=== PATIENT | male | born 1960 | race Caucasian/White ===

== ENCOUNTER 2021-03-14 04:51 | Emergency (ER) | payer BC, MEDICARE ==
[~2021-03-14] VITALS: Ht 185.4 cm; Wt 98.9 kg
[2021-03-14 05:26] LABS: BASOPHILS % (AUTO) 0.3 % (0.0-5.0); EOSINOPHILS % (AUTO) 0.1 % (0.0-8.0); HEMATOCRIT 42.1 % (42-54); LYMPHOCYTES % (AUTO) 8.7 % (21.0-51.0); MEAN CORPUSCULAR HEMOGLOBIN 28.4 pg (27.0-33.0); MEAN CORPUSCULAR HGB CONC 32.8 g/dL (32.0-36.0); MEAN CORPUSCULAR VOLUME 86.6 fL (79-99); MONOCYTES % (AUTO) 3.3 % (3.0-13.0); NEUTROPHILS % (AUTO) 87.1 % (40.0-77.0); PLATELET COUNT (AUTO) 259 K/uL (130-400); RED BLOOD CELL COUNT(AUTO) 4.86 MIL/uL (4.50-6.20); RED CELL DISTRIBUTION WIDTH 14.3 % (11.0-15.5); WHITE BLOOD COUNT (AUTO) 14.6 K/uL (4.8-10.8)
[2021-03-14] MEDS ORDERED: ONDANSETRON 4MG INJ IVP ONE (05:30)
[2021-03-14] MEDS ORDERED: METOCLOPRAMIDE 10 MG/2 ML VIAL IVP ONE (05:30)
[2021-03-14] MEDS ORDERED: 0.9%NACL 1000ML 1,000 ML IV ONE (05:30)
[2021-03-14] MEDS ORDERED: FAMOTIDINE 20MG VIAL IV ONE (05:30)
[2021-03-14] MEDS ORDERED: PANTOPRAZOLE 40 MG/VIAL IVP ONE (05:30)
[2021-03-14 05:42] LABS: ALANINE AMINOTRANSFERASE 29 U/L (12-78); ASPARTATE AMINOTRANSFERASE 16 U/L (10-37); BILIRUBIN,TOTAL 0.7 mg/dL (0.2-1.0); CARBON DIOXIDE 28 mmol/L (21-32); CHLORIDE 103 mmol/L (101-111); GLOMERULAR FILTR. RATE CALC 81 mL/min (>60); GLUCOSE,RANDOM 142 mg/dL (70-105); POTASSIUM 4.1 mmol/L (3.5-5.1); SODIUM SERUM 139 mmol/L (136-145); TOTAL PROTEIN, SERUM 7.3 g/dL (6.0-8.3); UREA NITROGEN, BLOOD 13 mg/dL (7-18)
[2021-03-14 06:31] LABS: LIPASE < 50 U/L (114-286)
[2021-03-14] MEDS ORDERED: DiphenhydrAMINE HCL 50 MG/ML VIAL IV SCH (07:00)
[2021-03-14] MEDS ORDERED: MAG/ALUM/SIMETH 30 ML UDCUP PO SCH (07:00)
[2021-03-14] MEDS ORDERED: KETOROLAC 15MG/ML VIAL (15MG/ML) IV SCH (07:00)
[2021-03-14] MEDS ORDERED: LIDOCAINE HCL 2% VISCOUS 15 ML UDCUP PO SCH (07:00)
[2021-03-14] MEDS ORDERED: METO-296 PO (07:15)
[2021-03-14] MEDS ORDERED: PANT40TA PO (07:15)
[2021-03-14] MEDS ORDERED: ONDA4TAB10 PO (07:15)
[2021-03-14] MEDS ORDERED: DICY20TA2 PO (07:15)
[2021-03-14 08:18] VITALS: BP 145/60
== END 2021-03-14 08:23 | disposition home or self-care (01) ==
LOC: EDH 04:51
DX: K29.00 Acute gastritis without bleeding (principal); E86.9 Volume depletion, unspecified; I45.10 Unspecified right bundle-branch block; Z79.899 Other long term (current) drug therapy; Z85.828 Personal history of other malignant neoplasm of skin
CPT/HCPCS: 36415; 71045; 76705; 80053; 83690; 84484; 85025; 93005; 96374; 96375; 99285; C9113; J1200; J1885; J2405; J2765; J3490

== ENCOUNTER 2021-09-23 16:33 | Inpatient (IN) | payer MEDICARE ==
[~2021-09-23] VITALS: Ht 185.4 cm; Wt 88.7 kg
[~2021-09-23 16:33] MED LIST: DICY20TA2 PO; METO-296 PO; ONDA4TAB10 PO; PANT40TA PO
[2021-09-23] MEDS ORDERED: FAMOTIDINE 20MG VIAL IV ONE ×2 (17:00→17:05)
[2021-09-23] MEDS ORDERED: 0.9%NACL 1000ML 1,000 ML IV ONE ×2 (17:00→17:05)
[2021-09-23] MEDS ORDERED: ONDANSETRON 4MG INJ IVP ONE (17:00)
[2021-09-23] MEDS ORDERED: HYDROMORPHONE 0.5 MG SYG (0.5MG/0.5ML) IVP ONE ×2 (17:00→18:00)
[2021-09-23 17:01] LABS: BASOPHILS % (AUTO) 0.2 % (0.0-5.0); EOSINOPHILS % (AUTO) 0.1 % (0.0-8.0); HEMATOCRIT 42.3 % (42-54); MEAN CORPUSCULAR HEMOGLOBIN 27.8 pg (27.0-33.0); MEAN CORPUSCULAR HGB CONC 32.4 g/dL (32.0-36.0); MEAN CORPUSCULAR VOLUME 85.8 fL (79-99); MONOCYTES % (AUTO) 4.6 % (3.0-13.0); NEUTROPHILS % (AUTO) 89.4 % (40.0-77.0); PLATELET COUNT (AUTO) 414 K/uL (130-400); RED BLOOD CELL COUNT(AUTO) 4.93 MIL/uL (4.50-6.20); RED CELL DISTRIBUTION WIDTH 15.1 % (11.0-15.5); WHITE BLOOD COUNT (AUTO) 21.1 K/uL (4.8-10.8)
[2021-09-23] MEDS ORDERED: HYDROMORPHONE 0.5 MG SYG (0.5MG/0.5ML) ONE (17:04)
[2021-09-23] MEDS ORDERED: ONDANSETRON 4MG INJ ONE (17:04)
[2021-09-23 17:12] LABS: CREATININE 1.1 mg/dL (0.5-1.5); POTASSIUM 3.1 mmol/L (3.5-5.1)
[2021-09-23 17:19] LABS: ALBUMIN 3.3 g/dL (3.5-5.0); BILIRUBIN,TOTAL 3.4 mg/dL (0.2-1.0); TOTAL PROTEIN, SERUM 7.1 g/dL (6.0-8.3)
[2021-09-23] MEDS ORDERED: IOHEXOL-350 75 ML VIAL IV ONE (17:48)
[2021-09-23] MEDS ORDERED: ZOSYN 3.375GM +NS 50ML IV SCH (20:00)
[2021-09-23] MEDS ORDERED: MORPHINE 2 MG SYG IV PRN (20:00)
[2021-09-23] MEDS ORDERED: ONDANSETRON 4MG INJ IV PRN (20:00)
[2021-09-23] MEDS ORDERED: HYDROMORPHONE 0.5 MG SYG (0.5MG/0.5ML) IV PRN (20:00)
[2021-09-23] MEDS: FAMOTIDINE 20MG VIAL IV SCH (21:04)
[2021-09-23] MEDS: 0.9%NACL 1000ML 1,000 ML IV SCH (21:04)
[2021-09-23] MEDS: ZOSYN 3.375GM+NS 50ML 50 ML IV SCH (21:04)
[2021-09-23] MEDS: LIDOCAINE HCL-MPF 1% 2ML VIAL IV PRN (21:05)
[2021-09-23] MEDS: POTASSIUM CHLORIDE 20MEQ/100ML 100 ML IV PRN (21:05)
[2021-09-23 21:07] LABS: APPEARANCE,URINE CLEAR (CLEAR); BILIRUBIN,URINE NEGATIVE (NEGATIVE); COLOR,URINE YELLOW (YELLOW); GLUCOSE, URINE (UA) NEGATIVE (NEGATIVE); KETONES,URINE NEGATIVE (NEGATIVE); LEUKOCYTE ESTERASE ,URINE NEGATIVE (NEGATIVE); NITRATE,URINE NEGATIVE (NEGATIVE); OCCULT BLOOD,URINE NEGATIVE (NEGATIVE); PROTEIN,URINE NEGATIVE (NEGATIVE)
[2021-09-24 01:25] VITALS: BP 126/55
[2021-09-24] MEDS ORDERED: PANT40TA55 PO (01:37)
[2021-09-24] MEDS: LIDOCAINE HCL-MPF 1% 2ML VIAL IV PRN ×3 (02:32→20:02)
[2021-09-24] MEDS: POTASSIUM CHLORIDE 20MEQ/100ML 100 ML IV PRN ×5 (02:32→20:02)
[2021-09-24 04:00] VITALS: BP 111/54
[2021-09-24] MEDS: ZOSYN 3.375GM+NS 50ML 50 ML IV SCH ×3 (04:29→20:04)
[2021-09-24 05:03] LABS: BASOPHILS % (AUTO) 0.2 % (0.0-5.0); EOSINOPHILS % (AUTO) 0.2 % (0.0-8.0); HEMATOCRIT 36.6 % (42-54); LYMPHOCYTES % (AUTO) 6.8 % (21.0-51.0); MEAN CORPUSCULAR HEMOGLOBIN 26.7 pg (27.0-33.0); MEAN CORPUSCULAR VOLUME 83.4 fL (79-99); MONOCYTES % (AUTO) 4.3 % (3.0-13.0); NEUTROPHILS % (AUTO) 87.6 % (40.0-77.0); PLATELET COUNT (AUTO) 340 K/uL (130-400); RED BLOOD CELL COUNT(AUTO) 4.39 MIL/uL (4.50-6.20); WHITE BLOOD COUNT (AUTO) 18.8 K/uL (4.8-10.8)
[2021-09-24] MEDS: 0.9%NACL 1000ML 1,000 ML IV SCH ×3 (05:04→20:02)
[2021-09-24 05:08] LABS: INR 1.05 (0.85-1.15); PROTHROMBIN TIME 11.4 SEC (9.6-11.6)
[2021-09-24 05:09] LABS: PARTIAL THROMBOPLASTIN TIME 26.6 SEC (26.3-35.5)
[2021-09-24 05:41] LABS: MAGNESIUM 1.7 mg/dL (1.80-2.40); POTASSIUM 3.1 mmol/L (3.5-5.1)
[2021-09-24 07:30] VITALS: BP 114/59
[2021-09-24] MEDS: FAMOTIDINE 20MG VIAL IV SCH ×2 (09:14→20:02)
[2021-09-24] MEDS ORDERED: GADOTERATE MEGLUMINE 10 MMOL/20 ML VIAL IV ONE (10:55)
[2021-09-24 11:00] VITALS: BP 106/51
[2021-09-24 16:00] VITALS: BP 120/50
[2021-09-24 19:00] VITALS: BP 116/54
[2021-09-25] VITALS (28 sets, daily range): BP systolic 115–160; BP diastolic 52–76
[2021-09-25] MEDS: 0.9%NACL 1000ML 1,000 ML IV SCH ×4 (01:33→22:00)
[2021-09-25] MEDS: LIDOCAINE HCL-MPF 1% 2ML VIAL IV PRN ×2 (01:37→04:06)
[2021-09-25] MEDS: POTASSIUM CHLORIDE 20MEQ/100ML 100 ML IV PRN ×2 (01:37→04:06)
[2021-09-25] MEDS: ZOSYN 3.375GM+NS 50ML 50 ML IV SCH ×3 (04:06→21:10)
[2021-09-25] MEDS: FAMOTIDINE 20MG VIAL IV SCH ×2 (08:46→21:10)
[2021-09-25] MEDS ORDERED: PROPOFOL 10 MG/ML 20ML VIAL IV ONE (11:25)
[2021-09-25] MEDS ORDERED: LIDOCAINE HCL 400MG/20ML VIAL ONE (11:26)
[2021-09-25] MEDS ORDERED: MIDAZOLAM HCL 1 MG/ML 2ML VIAL ONE (11:29)
[2021-09-25] MEDS ORDERED: FENTANYL CITRATE PF 50 MCG/1 ML 2ML VIAL ONE (11:29)
[2021-09-25] MEDS ORDERED: IOHEXOL-350 50ML VIAL IV ONE (11:53)
[2021-09-26] VITALS: BP 122/49
[2021-09-26 04:00] VITALS: BP 135/48
[2021-09-26] MEDS: ZOSYN 3.375GM+NS 50ML 50 ML IV SCH ×3 (05:18→20:32)
[2021-09-26 08:00] VITALS: BP 126/58
[2021-09-26] MEDS: FAMOTIDINE 20MG VIAL IV SCH ×2 (09:21→20:32)
[2021-09-26] MEDS: 0.9%NACL 1000ML 1,000 ML IV SCH ×2 (09:21→19:35)
[2021-09-26 10:07] LABS: BASOPHILS % (AUTO) 0.4 % (0.0-5.0); HEMATOCRIT 34.9 % (42-54); MEAN CORPUSCULAR HEMOGLOBIN 27.6 pg (27.0-33.0); MEAN CORPUSCULAR HGB CONC 32.4 g/dL (32.0-36.0); MEAN CORPUSCULAR VOLUME 85.3 fL (79-99); MONOCYTES % (AUTO) 5.2 % (3.0-13.0); PLATELET COUNT (AUTO) 273 K/uL (130-400); RED BLOOD CELL COUNT(AUTO) 4.09 MIL/uL (4.50-6.20); RED CELL DISTRIBUTION WIDTH 15.4 % (11.0-15.5)
[2021-09-26 10:21] LABS: CREATININE 0.9 mg/dL (0.5-1.5); POTASSIUM 3.7 mmol/L (3.5-5.1)
[2021-09-26 10:31] LABS: ALBUMIN 2.5 g/dL (3.5-5.0); BILIRUBIN,TOTAL 2.4 mg/dL (0.2-1.0); TOTAL PROTEIN, SERUM 5.9 g/dL (6.0-8.3)
[2021-09-26 12:00] VITALS: BP 143/81
[2021-09-26 16:00] VITALS: BP 126/60
== END 2021-09-26 21:30 | disposition left against medical advice (07) | DRG 446 ==
LOC: EDH 16:33 → EDHIP 19:42 → 3DH 09-24 01:18
PROVIDERS: ADMIT Internal Medicine; ATTEND Internal Medicine
PROC: 0F798ZZ Dilation of Common Bile Duct, Via Natural or Artificial Opening Endoscopic (ICD-10-PCS; principal; 2021-09-25)
DX: K80.50 Calculus of bile duct without cholangitis or cholecystitis without obstruction (principal); D72.829 Elevated white blood cell count, unspecified; E87.6 Hypokalemia; Z20.822 Contact with and (suspected) exposure to COVID-19; F17.210 Nicotine dependence, cigarettes, uncomplicated; R74.01 Elevation of levels of liver transaminase levels; Z53.29 Procedure and treatment not carried out because of patient's decision for other reasons
CPT/HCPCS: 36415; 43262; 43264; 71045; 74177; 74183; 74330; 80048; 80053; 81003; 83605; 83690; 83735; 84100; 84132; 84484; 85025; 85610; 85730; 86850; 86900; 86901; 87040; 87635; 93005; A4606; C1769; C1773; G0378; J1170; J2250; J2405; J2543; J2704; J3010; J3480; J3490; J7030; Q9967

== ENCOUNTER → 2023-10-18 | Outpatient (CLI) | payer OTHER ==
[~2023-10-18] MED LIST changes: -DICY20TA2 PO; -METO-296 PO; -ONDA4TAB10 PO; -PANT40TA PO; +PANT40TA55 PO
== END | disposition home or self-care (01) ==
LOC: OIH 11:10
PROVIDERS: ATTEND Physician Assistant
DX: Z13.6 Encounter for screening for cardiovascular disorders (principal)
CPT/HCPCS: 75571

== ENCOUNTER → 2023-11-25 | Outpatient (CLI) | payer OTHER | END | disposition home or self-care (01) | LOC: SHCH 11:25 | PROVIDERS: ATTEND Internal Medicine Cardiovascular Disease | DX: R42 Dizziness and giddiness (principal); I10 Essential (primary) hypertension; Z98.890 Other specified postprocedural states; Z82.49 Family history of ischemic heart disease and other diseases of the circulatory system; Z87.891 Personal history of nicotine dependence; I77.89 Other specified disorders of arteries and arterioles | CPT/HCPCS: 93880 ==

== ENCOUNTER → 2023-11-28 | Outpatient (CLI) | payer OTHER | END | disposition home or self-care (01) | LOC: SHCH 15:27 | PROVIDERS: ATTEND Internal Medicine Cardiovascular Disease | DX: I08.2 Rheumatic disorders of both aortic and tricuspid valves (principal); R00.0 Tachycardia, unspecified | CPT/HCPCS: 93306 ==